=== PATIENT | male | born 1970 ===

== ENCOUNTER 2017-02-25 21:14 | Emergency (ER) | payer OTHER ==
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
[2017-02-25 21:48] VITALS: BP 122/70; PULSE 70; RESP 20; TEMP 98.2; O2SAT 96
== END 2017-02-25 22:32 | disposition home or self-care (01) ==
LOC: C.ER 21:14
DX: S13.4XXA Sprain of ligaments of cervical spine, initial encounter (principal); S33.5XXA Sprain of ligaments of lumbar spine, initial encounter; V43.62XA Car passenger injured in collision with other type car in traffic accident, initial encounter; Y92.410 Unspecified street and highway as the place of occurrence of the external cause